=== PATIENT | female | born 1960 | race Two or more races ===

== ENCOUNTER 2025-05-14 09:07 | Inpatient (IN) | payer OTHER ==
[~2025-05-14] VITALS: Ht 162.6 cm; Wt 72.6 kg
[2025-05-14] MEDS ORDERED: ZESTRIL20 MG PO (10:01)
[2025-05-14] MEDS ORDERED: DILT-XR180 MG PO (10:01)
[2025-05-14] MEDS ORDERED: ROSUVASTATIN CA20 MG PO (10:01)
[2025-05-14] MEDS ORDERED: LINZESS145 MCG PO (10:02)
[2025-05-14 10:12] VITALS: BP 145/75
[2025-05-20] MEDS ORDERED: ONDANSETRON HCL 2 MG/ML VIAL IV PRN (10:45)
[2025-05-20] MEDS ORDERED: MORPHINE SULFATE 4 MG/ML CARTRIDGE IV PRN (10:45)
[2025-05-20] MEDS ORDERED: RINGERS SOLUTION,LACTATED 1,000 ML IV SCH (10:45)
[2025-05-20] MEDS ORDERED: OxyCODONE HCL 5 MG TABLET (ROXICODONE) PO PRN (10:45)
[2025-05-20] MEDS ORDERED: DEXTROSE 50 % IN WATER 0.5 G/ML DISP.SYRIN IV PRN ×2 (10:45→19:45)
[2025-05-20] MEDS ORDERED: MORPHINE SULFATE 4 MG/ML VIAL IV ONE ×2 (11:40→12:40)
[2025-05-20] MEDS ORDERED: CEFTRIAXONE SODIUM 2,000 MG VIAL IV ONE (12:15)
[2025-05-20] MEDS ORDERED: METRONIDAZOLE/SODIUM CHLORIDE 500 MG/100 ML PIGGYBACK IV ONE (12:15)
[2025-05-20] MEDS ORDERED: LIDOCAINE HCL 1%/EPINEPHRINE 20ML VIAL IJ ONE (12:15)
[2025-05-20] MEDS ORDERED: BUPIVACAINE HCL 30 ML VIAL IV ONE (12:15)
[2025-05-20] MEDS ORDERED: HYOSCYAMINE SULFATE 0.125 MG TAB.SUBL SL SCH (13:00)
[2025-05-20] MEDS ORDERED: SIMETHICONE 125 MG CAPSULE PO SCH (13:00)
[2025-05-20 13:40] LABS: BASO % 0.2 % (0.1-1.2); EOS # 0.00 (0.04-0.54); EOS % 0.0 % (0.7-7.0); LYMPH # 1.05 (1.18-3.74); LYMPH % 10.3 % (19.3-53.1); MEAN PLATELET VOLUME 10.90 fl (9.4-12.4); MONO # 0.56 (0.24-0.82); MONO % 5.5 % (4.7-12.5); NEUT # 8.54 (1.56-6.13); NEUT % 83.8 % (34.0-71.1); RED CELL DISTRIBUTION WIDTH 12.2 % (11.6-14.4)
[2025-05-20] MEDS ORDERED: ACETAMINOPHEN 500 MG GEL..CAP PO SCH (14:00)
[2025-05-20 14:14] VITALS: BP 168/70; O2SAT 95
[2025-05-20 16:00] VITALS: BP 160/71; O2SAT 97
[2025-05-20] MEDS ORDERED: POLYETHYLENE GLYCOL 3350 17 GM BLIST.PACK PO SCH (17:00)
[2025-05-20] MEDS ORDERED: GABAPENTIN 300 MG CAPSULE PO SCH (17:00)
[2025-05-20] MEDS ORDERED: METOCLOPRAMIDE HCL 5 MG/ML VIAL IV SCH (17:00)
[2025-05-20] MEDS ORDERED: INSULIN LISPRO 1,000 UNIT/10 ML UNITS SUBCUTANEO PRN (19:45)
[2025-05-20] MEDS ORDERED: CELECOXIB 200 MG CAPSULE PO SCH (21:00)
[2025-05-20] MEDS ORDERED: FAMOTIDINE/PF 20 MG/2 ML VIAL IV PUSH SCH (21:00)
[2025-05-21 01:39] VITALS: BP 147/83; O2SAT 100
[2025-05-21 07:21] LABS: BASO % 0.4 % (0.1-1.2); EOS # 0.12 (0.04-0.54); EOS % 1.3 % (0.7-7.0); LYMPH # 1.60 (1.18-3.74); LYMPH % 17.3 % (19.3-53.1); MEAN PLATELET VOLUME 9.60 fl (9.4-12.4); MONO # 0.97 (0.24-0.82); MONO % 10.5 % (4.7-12.5); NEUT # 6.51 (1.56-6.13); NEUT % 70.4 % (34.0-71.1); RED CELL DISTRIBUTION WIDTH 12.5 % (11.6-14.4)
[2025-05-21 07:56] LABS: BUN CREA RATIO 12.0 (7.0-25.0); CREATININE SERUM 1.06 mg/dL (0.55-1.02); GFR 52.02; GLUCOSE FASTING 113.0 mg/dL (65-100); OSMOLALITY SERUM 280.0 MOSM/KG (275-295)
[2025-05-21 08:00] VITALS: BP 155/75; O2SAT 99
[2025-05-21] MEDS ORDERED: DILTIAZEM HCL 180 MG CAP.SR.24H PO SCH (09:00)
[2025-05-21] MEDS ORDERED: LISINOPRIL 20 MG TABLET PO SCH (09:00)
[2025-05-21] MEDS ORDERED: LACTOBACILLUS ACIDOPHILUS 1 CAP CAP PO SCH (09:00)
[2025-05-21] MEDS ORDERED: ENOXAPARIN SODIUM 40 MG/0.4 ML SYRINGE SUBCUTANEO SCH (17:00)
[2025-05-21 17:13] VITALS: BP 136/77; O2SAT 94
[2025-05-22 01:16] VITALS: BP 159/85; O2SAT 94
[2025-05-22 08:00] VITALS: BP 147/79; O2SAT 96
[2025-05-22] MEDS ORDERED: ENOXAPARIN SODIUM 40 MG/0.4 ML SYRINGE SUBCUTANEO SCH (09:00)
[2025-05-22] MEDS ORDERED: INTESTINEX680 M1 PO (10:00)
[2025-05-22] MEDS ORDERED: LEVSIN/SL0.125 MG SL (10:00)
[2025-05-22] MEDS ORDERED: NEURONTIN300 MG PO (10:00)
[2025-05-22] MEDS ORDERED: ROSUVASTATIN CALCIUM 20 MG TABLET PO SCH (17:00)
== END 2025-05-22 11:47 | disposition home or self-care (01) | DRG 331 ==
LOC: O/R 05-20 05:06 → SURH 05-20 05:06
PROVIDERS: ADMIT Surgery; ATTEND Surgery
PROC: 0DNP4ZZ Release Rectum, Percutaneous Endoscopic Approach (ICD-10-PCS; 2025-05-20)
PROC: 0DBP4ZZ Excision of Rectum, Percutaneous Endoscopic Approach (ICD-10-PCS; 2025-05-20)
PROC: 0DTN4ZZ Resection of Sigmoid Colon, Percutaneous Endoscopic Approach (ICD-10-PCS; principal; 2025-05-20 10:15)
DX: K64.4 Residual hemorrhoidal skin tags (principal); K57.30 Diverticulosis of large intestine without perforation or abscess without bleeding; K58.1 Irritable bowel syndrome with constipation; K59.02 Outlet dysfunction constipation